=== PATIENT | male | born 1975 | race Caucasian/White ===

== ENCOUNTER 2016-09-30 13:14 | Emergency (ER) | payer SELFPAY ==
[~2016-09-30] VITALS: Ht 180.3 cm; Wt 81.6 kg
--- NOTE | 2016-09-30 13:38 | Emergency Room Report ---
See Addendum History of Present Illness Time Seen by MD Marina Presenting Problem in Triage Pt arrived:Walked Presenting Problem:PT REPORTS NUMBNESS FEELING IN LUE INTERMITTENTLY X3 HOURS. PT REPORTS HAD EPISODE OF CHEST PAIN YESTERDAY THAT LASTED APPROX 2 MINS THAT WAS THROBBING IN NATURE. 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 N Clinical Suspician of Infection? N Mental Status: 1 - Regular (Normal Baseline) Sepsis Risk:Low Sepsis Risk Have you (or family members/close friends) recently traveled outside the [place]? N If Yes, where/when: Have you had exposure to infectious disease within the past month? N TB? Other? Specify: Patient states yesterday around 9 AM he had some chest pain that lasted around 2 minutes and achiness chest and some LEFT arm numbness then it went away was very brief and think much of it. He also relates that he fell about 2 weeks ago and he thinks he broke his thumb and he's been having trouble using his RIGHT hand since then due to pain in his thumb he points to his all R collateral ligament area states he has moderate achy pain no radiation there when he tries to use it otherwise it is not hurting him he states he just tripped and fell. No prodromal symptoms at that time no loss of consciousness no other injury. Today he states around 9:30 he started with LEFT arm numbness again this time he did not have any chest pain he denies any trouble walking talking thinking infusion no weakness in his arms or legs no other neurologic complaints. On exam he ended up having some LEFT leg numbness as well but he did not perceive any leg numbness in history. ALLERGIES Coded Allergies: No Known Allergies (09/30/16) Home Medications Reported Medications No Known Home Medications History Medical History General CAD? No Angina: No DE: No Hypertension? No Hyperlipidemia? No CHF? No DVT? No PE? No COPD? No Asthma? No Anemia? No GERD? No Gastric ulcers? No GI Bleed? No Hernia? No Thyroid Problems? No Hypothyroidism? No CVA? No Seizures? No Diabetes? No Renal Insuffiency? No End Stage Renal Disease? No UTI? No Stones? No GB Disease: No Nephritic Syndrome? No Asplenia? No Hepatitis? No Sickle Cell Disease? No Arthritis? No Migraines? No Cataracts? No Glaucoma? No MRSA? No HIV? No TB? No Anxiety? No Depression? No Cancer? No More? No Immunization Hx DT/Tetanus Unknown Surgical Hx Previous Surgery?Y HERNAI REPAIR Social History Smoking Hx Smoker: Current Every Day Smoker Tobacco: Yes Type Cigarettes Packs/day 1 1/2 - 2 Packs Alcohol Alcohol: No Review of Systems All Other Systems Reviewed and Negative Physical Exam Vital Signs Vital Signs Date Time Temp Pulse Resp B/P Pulse O2 O2 Flow FiO2 Ox Delivery Rate 09/30 1318 97.7 94 18 156/107 100 General Appearance: Nontoxic Head: Normocephalic, without obvious abnormality, atraumatic. Eyes: conjunctiva/corneas clear ENT: Mucous membranes moist. Neck: No jugular venous distention. Cardiac: regular rate and rhythm Lungs: Clear to auscultation bilaterally Abdomen: Nontender, Nondistended, positive bowel sounds, no rebound : No CVA tenderness Extremities: no edema Musculoskeletal: No chest wall tenderness Patient has some tenderness at the RIGHT first IP joint of the thumb with some swelling and ulnar collateral lateral ligament laxity cw gamekeepers thumb Skin: No rashes or lesions to exposed skin. Neurologic: Alert and oriented x3 Cranial nerves intact Strength 5 out of 5 Sensation intact to light touch Ceptaz numbness in the LEFT upper extremity and the LEFT lower extremity holds both legs off the bed without drift Finger to nose intact Psychiatric: Normal affect (Ynes BURNETT, Curry) General Appearance normal appearance Respiratory Status No: respiratory distress. Cardiovascular normal exam Neurologic alert Medical Decision Making LABS/Meds/Orders Pt receiving controlled substance in ED? No Comment dw staff protocol here is to not call stroke team until CT head result is back, pt does not meet tpa criteria here due to symptoms, only has left numbness arm leg 228pm ct head back negative per verbal report to [facility] given call out to [facility] for transfer Results/Orders Laboratory Tests 09/30/16 1335: Sodium 141, Potassium 4.0, Chloride 106, Carbon Dioxide 28, BUN 10, Creatinine 1.0, Estimated Creat Clear 110, Estimated GFR (MDRD) 82, Glucose 113 H, Calcium 8.6, Total Bilirubin 0.4, AST 20, ALT 37, Alkaline Phosphatase 97, Creatine Kinase 142, CK-MB (CK-2) Rel Index 0.6, CK and CKMB Interp 0.9, Troponin I < 0.02, Total Protein 6.9, Albumin 3.7, Globulin 3.2, Albumin/Globulin Ratio 1.2, WBC 8.5, RBC 5.12, Hgb 16.0, Hct 46.5, MCV 90.7, RDW 13.4, Plt Count 203, MPV 6.1 L, Gran % 67.9, Gran # 5.8, Lymphocytes % 26.5, Monocytes % 3.9, Eosinophils % 1.4, Basophils % 0.4, Lymphocytes # 2.3, Monocytes # 0.3, Eosinophils # 0.1, Basophils # 0.0, PUBS MCHC 34.4, MCH 31.3 H Current Medication Orders Sig/Noemy Start time Last Medication Dose Route Stop Time Status Admin Sodium Chloride 10 ML PRN PRN 09/30 1345 AC IV 10/01 1333 Orders Procedure Date/time Status DIET-NOTHING BY MOUTH 09/30 D Active CHEST(2 VIEWS-NOT PORTABLE) 09/[address] HEAD REQ 09/30 1350 Complete HAND-RT 3 VIEWS 09/30 1350 Active ELECTROCARDIOGRAM REQUEST 09/30 1333 Active IV SALINE LOCK 09/30 1333 Active TRAIN RESERVATION CLERK 09/30 1333 Active CBC WITH AUTO DIFF 09/30 1333 Complete CARDIAC ENZYMES 09/30 1333 Complete CHEM 12 PROFILE 09/30 1333 Complete Departure Departure Time of Disposition 1434 Disposition DC/XFER from ER to [facility] Clinical Impression Primary Impression: Left sided numbness Secondary Impressions: Chest pain Qualifiers: Chest pain type: unspecified Qualified Code: R07.9 - Chest pain, unspecified Condition STABLE Referrals [facility] SH[facility] (Family) Prescriptions Current Visit Scripts No Known Home Medications ED Critical Care Critical Care No at 1435
[2016-09-30 13:44] LABS: LYMPH # 2.3 K/mm3 (0.7-4.5); LYMPH % 26.5 % (10-50)
[2016-09-30 14:12] LABS: BUN 10 mg/dL (7-18)
[2016-09-30 14:15] LABS: GFR (ESTIMATED) 82 ML/MIN (>60)
--- NOTE | 2016-09-30 14:18 | RADIOLOGY REPORT PS360 ---
CT HEAD WITHOUT CONTRAST CT BONE WINDOWS ORDERING PHYSICIAN : Curry Quick MD PATIENT AGE: 41 years GENDER: Male HISTORY: LEFT ARM NUMBNESS 1 day. Also Chest pain PROCEDURE: Routine axial images head with brain & bone windows COMPARISON: None FINDINGS: No acute intracranial findings. No hemorrhage. No mass. No subdural nor extra-axial collection. The ventricles and basal cisterns appear satisfactory. Arvizu and white matter patterns satisfactory. The posterior fossa appear satisfactory and unremarkable. CT Bone Windows: The skull is intact. The visualized portions of the paranasal sinuses are clear. Mastoid air cells and middle ear & IACs are unremarkable. Critical result called to er on 09/30/2016 2:13 PM. jerry IMPRESSION:-------- No acute intracranial findings.
--- NOTE | 2016-09-30 15:09 | RADIOLOGY REPORT PS360 ---
HAND-RT 3 VIEWS ORDERING PHYSICIAN : Curry Quick MD PATIENT AGE: 41 years GENDER: Male INDICATION: RIGHT THUMB Right thumb pain for 2 weeks. Clinical diagnosis game keepers thumbing. Fell & landed and fell on his thumb TECHNIQUE: 3 views right hand COMPARISON: No previous FINDINGS : On close inspection there is a tiny flake fragment seen off the base of the proximal phalanx of thumb, ulnar aspect. Barely appreciable but noted that there is a clinical diagnosis game keepers thumb & would be compatible with such injury. With a tiny avulsion fragment associated and resulting. Patient well-maintained bones well mineralized. Question Mild soft tissue swelling ----- IMPRESSION: ------ . I note the clinical diagnosis game keepers thumb Noting this history I do see a very faint flake fragment off the ulnar aspect base of proximal phalanx along the medial aspect first MCP joint which would correlate with clinical diagnosis game keepers thumb
--- NOTE | 2016-09-30 15:10 | RADIOLOGY REPORT PS360 ---
CHEST(2 VIEWS-NOT PORTABLE) ORDERING PHYSICIAN : Curry Quick MD PATIENT AGE: 41 years GENDER: Male INDICATION: Mild chest pain & left arm numbness for 2 days arm numbness PROCEDURE: CHEST(2 VIEWS-NOT PORTABLE) COMPARISON: None available FINDINGS: Lungs well expanded and clear . No pneumonia. No active disease. I would specifically no the left lung and right lung apex are clear. No rib lesions or abnormalities here no soft tissue findings supraclavicular region. No pneumothorax. No pleural effusion. Heart normal size. Normal pulmonary vascularity. Hilar and mediastinal structures appear satisfactory. Chest wall unremarkable. T-spine intact. IMPRESSION No active disease in the chest... Lungs clear
[2016-09-30 15:21] VITALS: BP 140/76
== END 2016-09-30 15:25 | disposition short-term general hospital (02) ==
LOC: ER 13:14
PROVIDERS: Emergency Medicine
DX: S62.501A Fracture of unspecified phalanx of right thumb, initial encounter for closed fracture (principal); W01.0XXA Fall on same level from slipping, tripping and stumbling without subsequent striking against object, initial encounter; Y92.9 Unspecified place or not applicable; R20.0 Anesthesia of skin; Z72.0 Tobacco use